=== PATIENT | male | born 1995 | race Caucasian/White ===

== ENCOUNTER 2017-03-01 08:45 | Emergency (ER) | payer BC ==
[~2017-03-01] VITALS: Ht 188 cm; Wt 94.0 kg
[2017-03-01 08:52] VITALS: TEMP 36.4; Ht 188 cm; Wt 94.0 kg
[2017-03-01] MEDS ORDERED: XYLOCAINE 1%/SOD BICARB 20 ML VIAL INFIL ONE (09:04)
--- NOTE | 2017-03-01 09:45 | DIAGNOSTIC IMAGING REPORT ---
LEFT FINGER(S) MIN 2 VIEWS ROUTINE CLINICAL HISTORY: left thumb laceration trauma COMPARISON: None. DISCUSSION: The bones and joint spaces appear intact. There is no evidence of fracture, dislocation or bony disease. Soft tissue edematous change IMPRESSION: Soft tissue edema. No acute bony abnormality. The above report was generated using voice recognition software. It may contain grammatical, syntax or spelling errors. Electronically signed by: Matt Saini M.D. 03/01/2017 9:43 AM Dictated Date/Time: 03/01/2017 9:43 AM
[2017-03-01 09:54] VITALS: BP 139/72; PULSE 75; O2SAT 99
--- NOTE | 2017-03-01 16:27 | EMERGENCY ROOM VISIT NOTE ---
ED Visit Note First contact with patient: 08:58 Chief complaint: Left thumb laceration HPI: This 21-year-old white male presents for evaluation of a laceration on the ulnar surface of his left thumb. The patient was taking out the garbage this morning and lifted the lid on the dumpster. It happened to be bolted to another lid, and slipped and fell, cutting the left thumb in the web space. Bleeding was controlled with pressure. He denies any numbness, tingling, or loss of motion. No other complaints. Tetanus is believed to be up-to-date. Pain is 2/10. No prior history of thumb injury. No other fingers are involved. Right-hand dominant. Supplemental sheet was reviewed. Previous surgeries: None Medical history: Benign Current Medications: None Allergies: NKDA Tetanus: Within 10 years Family History: Noncontributory Social History: Single. [employer] student. No tobacco use. REVIEW OF SYSTEM: HEENT: No dizziness, visual problems, hearing loss, or tinnitus. There is no difficulty swallowing and no oral lesions are present. PULMONARY: No cough, shortness of breath, sputum production or hemoptysis. CARDIOVASCULAR: No chest pain, palpitations, shortness of breath or peripheral edema. GASTROINTESTINAL: No diarrhea, constipation, nausea, vomiting, or abdominal pain. GENITOURINARY: No dysuria, frequency, urgency or nocturia. NEUROLOGIC: No weakness, muscle tenderness, epilepsy or history of neurological problems. MUSCULOSKELETAL: No history of joint tenderness/swelling. No history of arthritis or arthralgias. SKIN: No rashes or lesions. PSYCHIATRIC: No history of depression or mental illness. ENDOCRINE: No history of diabetes, thyroid disorders, or abnormal hair growth. Physical Exam: Vitals: Afebrile. Reviewed and filed in patient's chart General: Well-developed, well-nourished, young white male, in no acute distress. Obvious discomfort. He is sitting on the bed. Alert and oriented. Skin: Warm and dry with good turgor. No rashes. No ecchymosis or erythema. The patient is not diaphoretic. No abrasions. The patient has a 1.5 cm laceration present in the first webspace, at the base of the thumb. It is slightly curvilinear. bleeding is controlled. No foreign material is visible. Musculoskeletal: Patient has mild discomfort with palpation over the first MCP joint. No pain with palpation over the IP joint or distal phalanx. Full range of motion of the IP joint. Full range of motion of the MCP joint. Thumb circumduction and opposition are intact. No laxity with stressing of the collateral ligaments. No pain with palpation over the index through little fingers, second through fifth metacarpals, or carpal bones. Full wrist motion. Neurologic: Gross sensation is intact across the thumb and other digits by soft touch. Capillary refill is equal for each of the fingers. Data: Radiographic imaging obtained today of the left thumb was reviewed by me and read by radiology. No evidence for fracture or retained foreign body. Impression: Left thumb 1.5 cm laceration Procedure: Informed oral consent was obtained for repair. Left thumb was prepped with Betadine and draped with a sterile towel. Area was anesthetized using 5 mL 1% plain lidocaine in a field block. Thorough inspection was performed. No foreign material was found. No violation of the tendon or joint space. Wound was irrigated copiously using normal sterile saline under jet spray lavage. Wound was closed using 4-0 nylon. Excellent wound edge approximation was achieved. Hemostasis was achieved. Plan: Patient was educated regarding today's findings. Conservative care measures were discussed. Cleanse the wound daily with soap and water and reapply a small amount of bacitracin. Ice and elevate intermittently as needed for discomfort. Tylenol and ibuprofen every 6 hours as needed for pain. Wound care handout was provided. Sutures out in 12 days. He may shower. Avoid soaking or swimming for two weeks. Return to the ER for any acute changes or signs of infection. Problem List Medical Problems: (1) GI bleed Status: Resolved Current/Historical Medications No Active Prescriptions or Reported Meds Allergies Coded Allergies: No Known Allergies (Unverified , 03/01/17) Vital Signs Date Time Temp Pulse Resp B/P (MAP) Pulse Ox O2 Delivery O2 Flow Rate FiO2 03/01/17 09:54 75 18 139/72 99 03/01/17 08:52 36.4 59 18 135/89 96 Room Air Medications Administered Medications (Trade) Dose Ordered Sig/Edd Route Start Time Stop Time Status Last Admin Dose Admin Lidocaine HCl (Buffered Lidocaine 1% Inj) 20 ml STK-MED ONCE INFIL 03/01/17 09:04 03/01/17 09:05 DC 03/01/17 09:07 20 ML Departure Information Impression Primary Impression: Laceration of left thumb Dispostion Home / Self-Care Condition GOOD Prescriptions No Active Prescriptions or Reported Meds Forms WORK / SCHOOL INSTRUCTIONS, HOME CARE DOCUMENTATION FORM, Days to leave dressing on: 1 Clean wound with;: soap and water Number of times/day to clean wound: 2 TYLENOL USE, WOUND CARE INSTRUCTIONS, IMPORTANT VISIT INFORMATION Patient Instructions [facility] Additional Instructions Cleanse the wound daily with soap and water Avoid swimming or soaking for 2 weeks you may shower and wash your hands Tylenol and Motrin every 6 hours as needed for discomfort Sutures out in 12 days Return to the ED for any acute changes or signs of infection
== END 2017-03-01 09:55 | disposition home or self-care (01) ==
LOC: C.EDB 08:47
DX: S61.012A Laceration without foreign body of left thumb without damage to nail, initial encounter (principal); W01.0XXA Fall on same level from slipping, tripping and stumbling without subsequent striking against object, initial encounter; Y92.89 Other specified places as the place of occurrence of the external cause

== ENCOUNTER 2017-03-13 14:05 | Emergency (ER) | payer BC ==
[~2017-03-13] VITALS: Ht 188 cm; Wt 95.3 kg
[2017-03-13 14:15] VITALS: BP 129/90; PULSE 92; TEMP 36.9; O2SAT 98; Ht 188 cm; Wt 95.3 kg
--- NOTE | 2017-03-13 14:43 | EMERGENCY ROOM VISIT NOTE ---
ED Visit Note First contact with patient: 14:18 CHIEF COMPLAINT: Suture removal HISTORY OF PRESENT ILLNESS: This 21 year old male patient returns to the ED today for removal of sutures that were placed 12 days ago. There has been no swelling, redness, or drainage from the wound. The patient feels like the laceration is healing well. REVIEW OF SYSTEMS: A 6 system review of systems was completed with positives and pertinent negatives listed in the HPI. PMH: Unchanged from previous visit. ALLERGIES: NKDA PHYSICAL EXAM: Vital Signs: Reviewed Nurse's notes, vital signs stable. GENERAL : This is a 21 year old male, in no acute distress. SKIN: There is a sutured wound on the finger with no signs of infection. There is no erythema, swelling , or tenderness. EMERGENCY DEPARTMENT COURSE: 4 sutures were removed without any difficulty and there was no separation of the wound edges. The patient was discharged home in good condition. DIAGNOSIS: Healing laceration and suture removal DISCHARGE INSTRUCTIONS AND TREATMENT: Wash any remaining crusts off of the wound today and resume your normal activities. Problem List Medical Problems: (1) GI bleed Status: Resolved Current/Historical Medications No Active Prescriptions or Reported Meds Allergies Coded Allergies: No Known Allergies (Unverified , 03/13/17) Vital Signs Date Time Temp Pulse Resp B/P (MAP) Pulse Ox O2 Delivery O2 Flow Rate FiO2 03/13/17 14:15 36.9 92 15 129/90 98 Room Air Departure Information Impression Primary Impression: Encounter for removal of sutures Dispostion Home / Self-Care Condition GOOD Prescriptions No Active Prescriptions or Reported Meds Referrals No Doctor, Assigned (PCP) Patient Instructions [facility] Additional Instructions Wash any remaining crusts off of the wound today and resume your normal activities.
== END 2017-03-13 14:52 | disposition home or self-care (01) ==
LOC: C.EDB 14:08 → C.EDD 14:52
DX: S61.219D Laceration without foreign body of unspecified finger without damage to nail, subsequent encounter (principal); X58.XXXD Exposure to other specified factors, subsequent encounter

== ENCOUNTER 2019-07-31 09:34 | Inpatient (IN) ==
[2019-07-31 10:26] LABS: Basophils # (auto) 0.02 K/uL (0-0.2); Basophils % (auto) 0.2 %; Eosinophils # (auto) 0.05 K/uL (0-0.5); Eosinophils % (auto) 0.5 %; Hematocrit (blood only) 44.3 % (42-52); Hemoglobin 16.6 g/dL (14.0-18.0); Immature Granulocytes # (auto) 0.01 K/uL (0.00-0.02); Immature Granulocytes % (auto) 0.1 %; Lymphocytes # (auto) 1.39 K/uL (1.2-3.4); Mean Corpuscular Hemoglobin 32.2 pg (25-34); Mean Corpuscular Hgb Conc 37.5 g/dL (32-36); Mean Corpuscular Volume 85.9 fL (80-100); Mean Platelet Volume 9.3 fL (7.4-10.4); Monocytes # (auto) 0.64 K/uL (0.11-0.59); Neutrophils # (auto) 8.57 K/uL (1.4-6.5); Neutrophils % (auto) 80.2 %; Platelet Count 302 K/uL (130-400); RDW Coefficient of Variation 12.3 % (11.5-14.5); RDW Standard Deviation 38.2 fL (36.4-46.3); Red Blood Count 5.16 M/uL (4.7-6.1); White Blood Count 10.68 K/uL (4.8-10.8)
[2019-07-31 10:44] LABS: Albumin Level 4.6 gm/dl (3.4-5.0); BUN Creatinine Ratio 11.2 (10-20); Calcium 9.5 mg/dl (8.5-10.1); Creatinine Clr Calc Pharmacy 109.4 ml/min; Est GFR (African American) 96.5; Est GFR (Non-African American) 83.3; Potassium 3.7 mmol/L (3.5-5.1)
--- NOTE | 2019-07-31 10:44 | Emergency Department Note ---
Entered by Augustine Hinton acting as a scribe for History of Present Illness General Chief complaint: Mental Health Evaluation Stated complaint: TRIED TO COMMITT SUICICDE Time Seen by Provider: 07/31/19 09:45 Source: patient Limitations: no limitations History of Present Illness Onset (ago): day(s) (last night) Location: head Severity: similar to prior episodes Pain Consistency: + constant Quality: + constant Associated symptoms: + other (weight loss) The patient is a 23 year old male who presents to the Emergency Room for a [facility] health evaluation. The patient states he tried to overdose last night. He states he took about 15 Benadryl and drank alcohol last night. He states he was hoping he would not wake up. He states he woke up this morning 3 hours ago and felt the side effects of the Benadryl. He states he still feels the side effects of the Benadryl. He states he has been feeling more sad for the past 1.5 months. He states he tried to commit suicide twice before. He states each time he tried to commit suicide he took pills. He states he has never been hospitalized for his psychiatric issues before. He states he has been under a lot of stress with his friends and work. He states he has never tried to cut himself. He notes he lost 20 pounds in the past month. He states he thinks he should be admitted. He denies taking medications for depression, having heart, liver, kidney, and lung issues. He states he has a family history of hypertension. Home Medications Home Medications Medication Instructions Recorded Confirmed Type No Known Home Medications 07/31/19 07/31/19 History Allergies Allergy/AdvReac Type Severity Reaction Status Date / Time No Known Allergies Allergy Verified 07/31/19 10:43 Past Med/Surg History Medical History (Updated 07/31/19 @ 18:10 by Ari Frazier MD) Overdose Surgical History Hx of eye surgery Social History Preferred Language: Albanian Communication Ability: Effective Beliefs That Will Affect Care: None marital status: Single Current Living Situation: Family current occupational status: employed Feels Safe at Home: Yes Smoking Status: Never smoker Hx Alcohol Use: No Hx Substance Use: No caffeine: Yes Dental Care, Regularly: Yes Physical Activity Frequency: 5-6 Times per Week Seatbelt Use: always Sunscreen Use: Yes Review of Systems See HPI for pertinent positives & negatives. and A total of 10 systems reviewed and were otherwise negative Physical Exam Vital Signs Vital Signs - 24 hr 07/31/19 09:41 07/31/19 11:35 Temperature 36.4 C L Temperature Source Oral Pulse Rate 107 H Pulse Rate [Radial] 90 Pulse Rhythm [Radial] Regular Respiratory Rate 16 16 Respiratory Effort / Characteristics Non-Labored Spontaneous Non-Labored Respiratory Depth Normal Normal Respiratory Pattern Regular Blood Pressure 154/93 H Blood Pressure [Right Arm] 122/80 Blood Pressure Mean 113 Blood Pressure Mean [Right Arm] 94 Blood Pressure Position Sitting Pulse Oximetry 99 99 Oxygen Delivery Method Room Air Room Air Sepsis Recent Fever Within 48 Hours No Sepsis New/Unexplained Change in Mental Status No Sepsis Action Taken by Nursing No Action Required GENERAL: Patient is in no acute distress. HEENT: No acute trauma, normocephalic atraumatic, mucous membranes moist, no nasal congestion, no scleral icterus. NECK: No stridor, no adenopathy, no meningismus, trachea is midline. LUNGS: Clear to auscultation bilaterally, no wheeze, no rhonchi, breath sounds equal. HEART: Without murmurs gallops or rubs, regular rate and rhythm. ABDOMEN: Soft, nontender, bowel sounds positive, no hernias, no peritonitis. EXTREMITIES: No cyanosis or edema, full range of motion of all the joints without pain or difficulty, no signs for acute trauma. NEUROLOGIC: Oriented x 3, no acute motor or sensory deficits, no focal weakness. SKIN: No rash, no jaundice, no diaphoresis. PSYCH: Flat affect. Cooperative. Voluntary. Admits to taking around 15 Benadryl with alcohol. Course Course 0946: The patient was evaluated in room A8, and a complete history and physical examination were performed. 1136: Patient is medically clear. 1313: [address] [place] [address] requested an EKG. 1403: The patient has been accepted to [address] [place] [address]. He will be transferred to the [facility] facility. Medical Decision Making Differential Diagnosis Differential Diagnosis includes but is not limited to drug or alcohol abuse, suicidal ideations, situational depression, electrolyte imbalance, thyroid disorder, and anemia. Medical Records Attestation: I reviewed the patient's medical records. Patient was seen in the ED on July 18 for chest pain. He had a negative cardiac and pulmonary work-up. Home Medications Current Medication List: was personally reviewed by me Laboratory Data Attestation: I reviewed the patient's lab results. Result diagrams: 07/31/19 10:12 07/31/19 10:12 Lab Results 07/31/19 07/31/19 07/31/19 Range/Units 10:12 10:12 10:12 WBC 10.68 (4.8-10.8) K/uL RBC 5.16 (4.7-6.1) M/uL Hgb 16.6 (14.0-18.0) g/dL Hct 44.3 (42-52) % MCV 85.9 (80-100) fL MCH 32.2 (25-34) pg MCHC 37.5 H (32-36) g/dL RDW Std Deviation 38.2 (36.4-46.3) fL RDW Coeff of Shubham 12.3 (11.5-14.5) % Plt Count 302 (130-400) K/uL MPV 9.3 (7.4-10.4) fL Immature Gran % (Auto) 0.1 % Neut % (Auto) 80.2 % Lymph % (Auto) 13.0 % Carver % (Auto) 6.0 % Eos % (Auto) 0.5 % Baso % (Auto) 0.2 % Immature Gran # (Auto) 0.01 (0.00-0.02) K/uL Neut # (Auto) 8.57 H (1.4-6.5) K/uL Lymph # (Auto) 1.39 (1.2-3.4) K/uL Carver # (Auto) 0.64 H (0.11-0.59) K/uL Eos # (Auto) 0.05 (0-0.5) K/uL Baso # (Auto) 0.02 (0-0.2) K/uL Sodium 138 (136-145) mmol/L Potassium 3.7 (3.5-5.1) mmol/L Chloride 105 (98-107) mmol/L Carbon Dioxide 29 (21-32) mmol/L Anion Gap 4.0 (3-11) BUN 14 (7-18) mg/dl Creatinine 1.21 (0.6-1.4) mg/dl Est Cr Clr Drug Dosing 109.4 ml/min Est GFR ( Amer) 96.5 Est GFR (Non-Af Amer) 83.3 BUN/Creatinine Ratio 11.2 (10-20) Glucose 116 H (70-99) mg/dl Calcium 9.5 (8.5-10.1) mg/dl Total Bilirubin 1.3 H (0.2-1) mg/dl AST 16 (15-37) U/L ALT 21 (12-78) U/L Alkaline Phosphatase 62 (45-117) U/L Total Protein 8.1 (6.4-8.2) gm/dl Albumin 4.6 (3.4-5.0) gm/dl Globulin 3.5 (2.5-4.0) gm/dl Albumin/Globulin Ratio 1.3 (0.9-2) TSH 1.270 (0.300-4.500) uIu/ml Urine Color Urine Appearance (Clear) Urine pH (4.5-7.5) Ur Specific [place] (1.000-1.030) Urine Protein (Negative) Urine Glucose (UA) (Negative) Urine Ketones (Negative) Urine Blood (Negative) Urine Nitrite (Negative) Urine Bilirubin (Negative) Urine Urobilinogen (Negative) Ur Leukocyte Esterase (Negative) Salicylates < 1.7 L (2.8-20) mg/dl Urine Opiates Screen (Neg) Ur Methadone, Qual (Neg) Acetaminophen < 2 L (10-30) ug/ml Urine Barbiturates (Neg) Ur Phencyclidine (PCP) (Neg) U Amphetamin/Meth Scrn (Neg) MDMA (Ecstasy) Screen (Neg) U Benzodiazepines Scrn (Neg) Ur Cocaine Metabolite (Neg) U Marijuana (THC) Screen (Neg) Ethyl Alcohol mg/dL (0-3) mg/dl 07/31/19 07/31/19 07/31/19 Range/Units 10:12 10:53 10:53 WBC (4.8-10.8) K/uL RBC (4.7-6.1) M/uL Hgb (14.0-18.0) g/dL Hct (42-52) % MCV (80-100) fL MCH (25-34) pg MCHC (32-36) g/dL RDW Std Deviation (36.4-46.3) fL RDW Coeff of Shubham (11.5-14.5) % Plt Count (130-400) K/uL MPV (7.4-10.4) fL Immature Gran % (Auto) % Neut % (Auto) % Lymph % (Auto) % Carver % (Auto) % Eos % (Auto) % Baso % (Auto) % Immature Gran # (Auto) (0.00-0.02) K/uL Neut # (Auto) (1.4-6.5) K/uL Lymph # (Auto) (1.2-3.4) K/uL Carver # (Auto) (0.11-0.59) K/uL Eos # (Auto) (0-0.5) K/uL Baso # (Auto) (0-0.2) K/uL Sodium (136-145) mmol/L Potassium (3.5-5.1) mmol/L Chloride (98-107) mmol/L Carbon Dioxide (21-32) mmol/L Anion Gap (3-11) BUN (7-18) mg/dl Creatinine (0.6-1.4) mg/dl Est Cr Clr Drug Dosing ml/min Est GFR ( Amer) Est GFR (Non-Af Amer) BUN/Creatinine Ratio (10-20) Glucose (70-99) mg/dl Calcium (8.5-10.1) mg/dl Total Bilirubin (0.2-1) mg/dl AST (15-37) U/L ALT (12-78) U/L Alkaline Phosphatase (45-117) U/L Total Protein (6.4-8.2) gm/dl Albumin (3.4-5.0) gm/dl Globulin (2.5-4.0) gm/dl Albumin/Globulin Ratio (0.9-2) TSH (0.300-4.500) uIu/ml Urine Color Yellow Urine Appearance Clear (Clear) Urine pH 6.0 (4.5-7.5) Ur Specific [place] 1.009 (1.000-1.030) Urine Protein Negative (Negative) Urine Glucose (UA) Negative (Negative) Urine Ketones Negative (Negative) Urine Blood Negative (Negative) Urine Nitrite Negative (Negative) Urine Bilirubin Negative (Negative) Urine Urobilinogen Negative (Negative) Ur Leukocyte Esterase Negative (Negative) Salicylates (2.8-20) mg/dl Urine Opiates Screen Neg (Neg) Ur Methadone, Qual Neg (Neg) Acetaminophen (10-30) ug/ml Urine Barbiturates Neg (Neg) Ur Phencyclidine (PCP) Neg (Neg) U Amphetamin/Meth Scrn Neg (Neg) MDMA (Ecstasy) Screen Neg (Neg) U Benzodiazepines Scrn Neg (Neg) Ur Cocaine Metabolite Neg (Neg) U Marijuana (THC) Screen Neg (Neg) Ethyl Alcohol mg/dL < 3.0 (0-3) mg/dl ECG Data Attestation: I personally reviewed and interpreted this ECG as follows: Indication: + toxicologic Rate (beats per minute): 90 Rhythm: + normal sinus ECG Intervals/blocks: + Normal QT-c (at 425) ECG ST segments: no ST elevation ECG Findings: no PVCs Blood Pressure Blood Pressure Findings: Elevated blood pressure Blood Pressure Disposition: further management by hospitalist MDM Narrative There is no leukocytosis or concerning anemia. No significant electrolyte abnormality or kidney failure. No worrisome liver enzyme elevation. The patient appears to be in a euthyroid state. Urinalysis does not show infection. Alcohol, Tylenol and aspirin levels were undetectable. Urine tox was negative. EKG showed a sinus rhythm, no significant QT prolongation. Patient presents with suicidal ideation. He attempted to overdose on Benadryl with alcohol last evening. He is voluntary and would like to stay in the hospital for help. The patient was felt medically clear. He was seen by psychiatry case management. The patient has been accepted at this [facility] facility, [address] He is being admitted voluntarily. Continuous Cardiac Monitoring: An order was placed for continuous cardiac monitoring. The monitor shows a rate of 93 with a normal sinus rhythm. Impression & Plan Suicide attempt, Medication overdose, Depression Discharge Plan Visit Data *Final* Discharge Date/Time: 07/31/19 14:30 Chief Complaint: Mental Health Evaluation Stated Complaint: TRIED TO COMMITT SUICICDE ED Provider: Ari Frazier Discharge Problem: Suicide attempt, Medication overdose, Depression Patient Disposition: Transfer Behavioral Health Fac Discharge Instructions Interventions: ED Discharge Assessment Last Done: 07/31/19 14:30 Discharge Problem: Medication overdose Qualifiers: Encounter type: initial encounter Injury intent: intentional self-harm Qualified Code(s): T50.902A - Poisoning by unspecified drugs, medicaments and biological substances, intentional self-harm, initial encounter Depression Qualifiers: Depression Type: unspecified Qualified Code(s): F32.9 - Major depressive disorder, single episode, unspecified The scribe's documentation has been prepared under my direction and personally reviewed by me in its entirety. I confirm that the note above accurately reflects all work, treatment, procedures, and medical decision making performed by me.
[2019-07-31 10:46] LABS: Acetaminophen < 2 ug/ml (10-30); Salicylate < 1.7 mg/dl (2.8-20)
[2019-07-31 10:54] LABS: Albumin Globulin Ratio 1.3 (0.9-2); Bilirubin,Total 1.3 mg/dl (0.2-1); Globulin 3.5 gm/dl (2.5-4.0); Thyroid Stimulating Hormone 1.27 uIu/ml (0.300-4.500); Total Protein 8.1 gm/dl (6.4-8.2)
[2019-07-31 11:06] LABS: Appearance Urine Clear (Clear); Bilirubin Urine Negative (Negative); Blood Urine Negative (Negative); Color Urine Yellow; Glucose Urine UA Negative (Negative); Ketones Urine Negative (Negative); Leukocyte Esterase Urine Negative (Negative); Nitrite Urine Negative (Negative); Protein Urine Negative (Negative); Specific Gravity Urine 1.009 (1.000-1.030); Urobilinogen Urine Negative (Negative)
[2019-07-31 11:32] LABS: Amphetamines+Metham, Urine Neg (Neg); Barbiturates, Urine Neg (Neg); Benzodiazepine, Urine Neg (Neg); Cocaine, Urine Neg (Neg); MDMA (Ecstacy), Urine Neg (Neg); Methadone, Urine Neg (Neg); Opiate, Urine Neg (Neg); Phencyclidine, Urine Neg (Neg)
[2019-07-31] MEDS ORDERED: SODIUM CHLORIDE 0.65% NA SOLN 45 ML (OCEAN) PRN (14:44)
[2019-07-31] MEDS ORDERED: BISMUTH SUBSALICYLATE PER ML OMNICELL CHARGE PO PRN (14:44)
[2019-07-31] MEDS ORDERED: ACETAMINOPHEN 325 MG TAB PO PRN (14:44)
[2019-07-31] MEDS ORDERED: ALUMINUM/MAGNESIUM SUSP 30 ML UDC PO PRN (14:44)
[2019-07-31] MEDS ORDERED: MAGNESIUM HYDROXIDE SUSP 30 ML UDC PO PRN (14:44)
--- NOTE | 2019-07-31 15:59 | Electrocardiogram Report ---
Test Reason : Blood Pressure : / mmHG Vent. Rate : 090 BPM Atrial Rate : 090 BPM P-R Int : 128 ms QRS Dur : 100 ms QT Int : 348 ms P-R-T Axes : 049 040 006 degrees QTc Int : 425 ms Normal sinus rhythm Normal ECG When compared with ECG of 18-JUL-2019 18:48, No significant change Confirmed by Jayce Garcia ([id number]) on 07/31/2019 3:58:27 PM Referred By: REFERRED SELF Confirmed By:Jayce Garcia
[2019-07-31] MEDS ORDERED: LORazepam 0.5 MG TAB PO PRN (16:37)
--- NOTE | 2019-07-31 16:37 | History & Physical ---
Date of Service July 31, 2019 Impression / Recommendations Impression 23-year-old gentleman with minimal prior psychiatric history apart from treatment for ADHD in high school. Presents with symptoms of likely underlying generalized anxiety disorder and has a history of multiple overdose attempts in the past triggered by psychosocial stressors. We will need to explore underlying personality structure as possible contributor to suicidal risk. (1) Suicide attempt: 07/31 -Patient admitted on a voluntary status to the behavioral health unit. Will be maintained on safety checks and encouraged to participate in unit programming as appropriate -Patient has a history of 3 total impulsive suicide attempts via overdose and at risk for recurrence of self-harm if discharged without appropriate treatment -He does not appear to be demonstrating symptoms of anticholinergic toxidrome apart from complaint of dry mouth and drowsiness. He was encouraged to push oral fluids today and will defer any anticholinergic medications presently (2) Depression: 07/31 -Unclear if mood decompensation is truly recurrent major depressive disorder or perhaps more an adjustment disorder with depression in setting of recent psychosocial stressors. Regardless, anxiety appears to play heavily and undermining his ability to cope effectively -Patient agreeable to SSRI trial as below -advised to minimize etoh intake which may negatively impact mood and impulse control - he will require outpatient f/u which will be addressed prior to discharge Depression Type: unspecified Qualified Code(s): F32.9 - Major depressive disorder, single episode, unspecified (3) Generalized anxiety disorder: 07/31 -Likely CAMI underlying. Psychoeducation provided. Risks and benefits of SSRIs reviewed in detail. Patient amenable to trial and will start Lexapro 10 mg p.o. every morning beginning tomorrow -He was advised not to continue the practice of taking Benadryl at home for sleep latency associated with anxiety. If he requires a sleep aid here in the hospital he will be given an alternative that has not directly antihistaminic/anticholinergic and will write for an Ativan 0.5 mg twice daily as needed for acute anxiety or insomnia temporarily Inventory Assets Strengths: Patient is presently help seeking, motivated Needs: Provision of safety, medication management Risk Factors Assessment Male: Yes : Yes Do You Have Access To A Gun?: No Health Problems: No Substance Use Disorders: No Previous Attempt: Yes Previous Attempt; Didn't Tell Anyone: Yes Family History of Suicide: No Previous Psychiatric Hospitalization: No Hopelessness: No Smoker: No Protective Factors Assessment Presybeterian Beliefs: No : No Responsible for Young Children: No 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) Psychiatric History Identifying Data JAMIE TORRE is a 23-year-old M who currently lives with his parents, has a history of ADHD as child, and was admitted on 07/31/19 14:02 on a 201 voluntary commitment for suicide attempt via OD. Chief Complaint "I get overwhelmed". History of Present Illness Patient reports a history of psychiatric follow-up with Dr. Rei green en the ages of 13 and 17 when he was being treated for ADHD with Concerta but has been off of that medication for several years now and reports repeat testing in college did not support the ADHD diagnosis. He otherwise denies a formal psychiatric history. He does note a history of 2 prior overdose attempts previous to his overdose last evening. First overdose attempt occurred during his freshman year when he took a half bottle of ibuprofen impulsively when he felt alone "like everyone abandoned me." Second overdose attempt occurred during his sophomore year of college and also took an overdose of [id number] pain reliever but unable to recall trigger. He did not seek treatment for these events. Overdose last night with 15 to 20 tablets of Benadryl (unknown strength, likely 25 mg) around 9:30 PM in combination with 3-5 alcoholic beverages. Did not seek help. Woke this morning feeling groggy and with dry mouth but denies other symptoms of anticholinergic toxidrome. States h e took the Benadryl last night either to kill himself or put himself into a coma however now feels glad that he was not successful and appreciative of opportunity to get some help. He reports that his mood at baseline is typically fairly good and he tends to perceive himself as happy but when circumstances get difficult he can feel quite depressed and it can be difficult for him to cope and he notices intrusion of suicidal impulses. Recently he reports mood has decompensated following a break-up after 5-month relationship with a female who had a 3-year-old son with whom he quickly felt himself quite attached to. They broke up last Friday and he worries that they will not be able to remain friends. 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 He reports depressed mood and increased anxiety for the past month with diminished appetite, perhaps 20 pound weight loss, variable sleep latency, variable energy. He describes a tendency to worry associated with significant physical tension, distractibility, sleep latency, and a tendency to overreact and desire to "fix" things. "I can be pretty overbearing." He reports a history of 1 or 2 panic attacks in his lifetime but none recent. He denies a history of social phobia, OCD, tobin, PTSD, or psychosis. He denies any other history of self injury apart from his overdose attempts. Past Psychiatric History Previous Psych History: Former outpatient of Dr. Rei Kumar in high school for ADHD treated with Concerta. Current Psychiatric Diagnosis: ADHD, reportedly diagnosis later not supported with repeat testing Outpatient Services: None Previous Psych Admissions: None Do You Have Access To A Gun?: No History of Previous Suicide Attempt: Yes Describe Attempts in the Past: Overdose 2x a few years ago Past Medication Trials: Concerta -none since college Past Head Trauma/Neuro History History of Concussion/Seizure: No Allergies Allergy/AdvReac Type Severity Reaction Status Date / Time No Known Allergies Allergy Verified 07/31/19 10:43 Home Medications Home Medications Medication Instructions Recorded Confirmed Type No Known Home Medications 07/31/19 07/31/19 History Family History Family History of: Psychosis/ThoughtDisorder Family Mental Health History Comment: Great Aunt-Schizophrenia Alcohol History Hx of Alcohol Use Over the Past 12 Months: Yes (Occasional. Reports typically only 1 drink on occasion at baseline. In the past 1 to 2 weeks he has been drinking 1-2 drinks nightly. 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 Number Of Children: 0 Beliefs That Will Affect Care: None Current Legal Problems: No Hx Legal Problems: No Hx Traumatic Life Events: No Psychological Trauma History Comment: Denies Patient History Surgical History Hx of eye surgery Social History Preferred Language: Lao Communication Ability: Effective Beliefs That Will Affect Care: None marital status: Single Current Living Situation: Family current occupational status: employed Feels Safe at Home: Yes Smoking Status: Never smoker Hx Alcohol Use: No Hx Substance Use: No caffeine: Yes Dental Care, Regularly: Yes Physical Activity Frequency: 5-6 Times per Week Seatbelt Use: always Sunscreen Use: Yes Review of Systems Constitutional: as per Subjective / HPI Respiratory: no problem reported Cardiovascular: no problem reported Gastrointestinal: no problem reported Neurologic: no dizziness and no confusion Psychiatric: as per Subjective / HPI 10 point review of systems otherwise negative except as per HPI Physical Exam Psychiatric: Orientation: alert, oriented x 3 and cooperative Apperance: appropriately dressed and appropriately groomed Eye Contact: + fair eye contact Motor Behavior: steady gait and station; n tremor Speech: normal rate/rhythm/volume of speech Affect: + anxious affect Mood: + depressed mood and + anxious mood Thought Process: linear/logical thought process and clear/coherent thought process Thought Content: reality based without delusions Suicidal Thoughts: denies suicidal intent; + reports suicidal thoughts Homicidal Thoughts: denies homicidal thoughts Hallucinations: no auditory hallucinations, no visual hallucinations and no tactile hallucinations Cognition: recent memory grossly intact and remote memory grossly intact Estimated Intelligence: average estimated intelligence Insight: + fair insight Judgement: + limited judgement Vital Signs (Past 24 Hours): Last Vital Signs Temp 36.4 C L 07/31/19 09:41 Pulse 95 H 07/31/19 14:30 Resp 16 07/31/19 14:30 BP 131/85 07/31/19 14:30 Pulse Ox 99 07/31/19 14:30 Results & Data Laboratory Results Laboratory Results - last 24 hr 07/31/19 07/31/19 07/31/19 10:12 10:12 10:12 WBC 10.68 RBC 5.16 Hgb 16.6 Hct 44.3 MCV 85.9 MCH 32.2 MCHC 37.5 H RDW Std Deviation 38.2 RDW Coeff of Shubham 12.3 Plt Count 302 MPV 9.3 Immature Gran % (Auto) 0.1 Neut % (Auto) 80.2 Lymph % (Auto) 13.0 [place] % (Auto) 6.0 Eos % (Auto) 0.5 Baso % (Auto) 0.2 Immature Gran # (Auto) 0.01 Neut # (Auto) 8.57 H Lymph # (Auto) 1.39 [place] # (Auto) 0.64 H Eos # (Auto) 0.05 Baso # (Auto) 0.02 Sodium 138 Potassium 3.7 Chloride 105 Carbon Dioxide 29 Anion Gap 4.0 BUN 14 Creatinine 1.21 Est Cr Clr Drug Dosing 109.4 Est GFR ( Amer) 96.5 Est GFR (Non-Af Amer) 83.3 BUN/Creatinine Ratio 11.2 Glucose 116 H Calcium 9.5 Total Bilirubin 1.3 H AST 16 ALT 21 Alkaline Phosphatase 62 Total Protein 8.1 Albumin 4.6 Globulin 3.5 Albumin/Globulin Ratio 1.3 TSH 1.270 Urine Color Urine Appearance Urine pH Ur Specific [place] Urine Protein Urine Glucose (UA) Urine Ketones Urine Blood Urine Nitrite Urine Bilirubin Urine Urobilinogen Ur Leukocyte Esterase Salicylates < 1.7 L Urine Opiates Screen Ur Methadone, Qual Acetaminophen < 2 L Urine Barbiturates Ur Phencyclidine (PCP) U Amphetamin/Meth Scrn MDMA (Ecstasy) Screen U Benzodiazepines Scrn Ur Cocaine Metabolite U Marijuana (THC) Screen Ethyl Alcohol mg/dL 07/31/19 07/31/19 07/31/19 10:12 10:53 10:53 WBC RBC Hgb Hct MCV MCH MCHC RDW Std Deviation RDW Coeff of [place]ubham Plt Count MPV Immature Gran % (Auto) Neut % (Auto) Lymph % (Auto) [place] % (Auto) Eos % (Auto) Baso % (Auto) Immature Gran # (Auto) Neut # (Auto) Lymph # (Auto) [place] # (Auto) Eos # (Auto) Baso # (Auto) Sodium Potassium Chloride Carbon Dioxide Anion Gap BUN Creatinine Est Cr Clr Drug Dosing Est GFR ( Amer) Est GFR (Non-Af Amer) BUN/Creatinine Ratio Glucose Calcium Total Bilirubin AST ALT Alkaline Phosphatase Total Protein Albumin Globulin Albumin/Globulin Ratio TSH Urine Color Yellow Urine Appearance Clear Urine pH 6.0 Ur Specific [place] 1.009 Urine Protein Negative Urine Glucose (UA) Negative Urine Ketones Negative Urine Blood Negative Urine Nitrite Negative Urine Bilirubin Negative Urine Urobilinogen Negative Ur Leukocyte Esterase Negative Salicylates Urine Opiates Screen Neg Ur Methadone, Qual Neg Acetaminophen Urine Barbiturates Neg Ur Phencyclidine (PCP) Neg U Amphetamin/Meth Scrn Neg MDMA (Ecstasy) Screen Neg U Benzodiazepines Scrn Neg Ur Cocaine Metabolite Neg U Marijuana (THC) Screen Neg Ethyl Alcohol mg/dL < 3.0 Current Inpatient Medications Current Inpatient Medications: Current Inpatient Medications Acetaminophen (Tylenol) 650 mg PO Q4H PRN PRN Reason: Headache or Minor Fever Stop: 08/30/19 14:43 Al Hydrox/Mg Hydrox/Simethicone (Maalox) 30 ml PO Q4H PRN PRN Reason: GI Upset Stop: 08/30/19 14:43 Bismuth Subsalicylate (Kaopectate) 15 ml PO PRN PRN PRN Reason: Loose Stool Stop: 08/30/19 14:43 Magnesium Hydroxide (Milk Of Magnesia) 30 ml PO DAILY PRN PRN Reason: Constipation Stop: 08/30/19 14:43 Sodium Chloride ([place] Nasal) 1 - 2 sprays NA PRN PRN PRN Reason: Nasal Dryness/Congestion Stop: 08/30/19 14:43
[2019-08-01] MEDS ORDERED: ESCITALOPRAM OXALATE 10 MG TAB PO SCH (09:00)
--- NOTE | 2019-08-01 11:35 | Psychiatric Progress Note ---
Date of Service August 01, 2019 Impression / Recommendations Impression 23-year-old gentleman with minimal prior psychiatric history apart from treatment for ADHD in high school. Presents with symptoms of likely underlying generalized anxiety disorder and has a history of multiple overdose attempts in the past triggered by psychosocial stressors. We will need to explore underlying personality structure as possible contributor to suicidal risk. (1) Suicide attempt: 07/31 -Patient admitted on a voluntary status to the behavioral health unit. Will be maintained on safety checks and encouraged to participate in unit programming as appropriate -Patient has a history of 3 total impulsive suicide attempts via overdose and at risk for recurrence of self-harm if discharged without appropriate treatment -He does not appear to be demonstrating symptoms of anticholinergic toxidrome apart from complaint of dry mouth and drowsiness. He was encouraged to push oral fluids today and will defer any anticholinergic medications presently 08/01 -Reports no further suicidal impulses in last 24 hours. -Patient does have a history of multiple impulsive suicide attempts and remains at risk for recurrence of self injury if discharged prematurely (2) Depression: 07/31 -Unclear if mood decompensation is truly recurrent major depressive disorder or perhaps more an adjustment disorder with depression in setting of recent psychosocial stressors. Regardless, anxiety appears to play heavily and undermining his ability to cope effectively -Patient agreeable to SSRI trial as below -advised to minimize etoh intake which may negatively impact mood and impulse control - he will require outpatient f/u which will be addressed prior to discharge 08/01 -Continue Lexapro 10 mg daily (3) Generalized anxiety disorder: 07/31 -Likely CAMI underlying. Psychoeducation provided. Risks and benefits of SSRIs reviewed in detail. Patient amenable to trial and will start Lexapro 10 mg p.o. every morning beginning tomorrow -He was advised not to continue the practice of taking Benadryl at home for sleep latency associated with anxiety. If he requires a sleep aid here in the hospital he will be given an alternative that has not directly antihistaminic/anticholinergic and will write for an Ativan 0.5 mg twice daily as needed for acute anxiety or insomnia temporarily 08/01 -Reports some interval improvement in anxiety today with support and an opportunity to have some distance from acute psychosocial stressors outside of the hospital. 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 Review of Systems Sleep Information Total Hours of Sleep: 6.75 Meal Information Percent Meal Consumed - Breakfast: 100 Percent Meal Consumed - Dinner: 100 Subjective Subjective Patient was seen & assessed and interval progress reviewed with treatment team. Patient did not go to group last evening due to fatigue however he is up, alert, and participating this morning. On interview he denies residual grogginess associated with Benadryl overdose. He did not have a bowel movement yesterday but does not feel constipated so far. Starting Lexapro today and first dose without initial problems. He is already describing some improved hopefulness taking comfort and the fact that he has chosen to seek help. Physical Exam Psychiatric Orientation: alert, oriented x 3 and cooperative Apperance: appropriately dressed and appropriately groomed Eye Contact: good eye contact Motor Behavior: steady gait and station and no abnormal motor movements Speech: normal rate/rhythm/volume of speech Affect: euthymic affect " Pretty good" Thought Process: linear/logical thought process Thought Content: reality based without delusions Suicidal Thoughts: denies suicidal intent; + reports suicidal thoughts Homicidal Thoughts: denies homicidal thoughts Hallucinations: no auditory hallucinations, no visual hallucinations and no tactile hallucinations Cognition: recent memory grossly intact, remote memory grossly intact and attention grossly intact Estimated Intelligence: average estimated intelligence Insight: + fair insight Judgement: + fair judgement Vital Signs (Past 24 Hours) Last Vital Signs Temp 36.9 C 08/01/19 06:51 Pulse 92 H 08/01/19 06:52 Resp 16 08/01/19 06:51 BP 102/90 08/01/19 06:52 Pulse Ox 99 07/31/19 15:48 Results & Data Laboratory Results Laboratory Results - last 24 hr 07/31/19 10:53 Urine Opiates Screen Neg Ur Methadone, Qual Neg Urine Barbiturates Neg Ur Phencyclidine (PCP) Neg U Amphetamin/Meth Scrn Neg MDMA (Ecstasy) Screen Neg U Benzodiazepines Scrn Neg Ur Cocaine Metabolite Neg U Marijuana (THC) Screen Neg Current Inpatient Medications Current Inpatient Medications: Current Inpatient Medications Acetaminophen (Tylenol) 650 mg PO Q4H PRN PRN Reason: Headache or Minor Fever Stop: 08/30/19 14:43 Al Hydrox/Mg Hydrox/Simethicone (Maalox) 30 ml PO Q4H PRN PRN Reason: GI Upset Stop: 08/30/19 14:43 Bismuth Subsalicylate (Kaopectate) 15 ml PO PRN PRN PRN Reason: Loose Stool Stop: 08/30/19 14:43 Escitalopram Oxalate (Lexapro Tab) 10 mg PO QAM HEIDI Stop: 08/31/19 08:59 Last Admin: 08/01/19 08:12 Dose: 10 mg Documented by: Lorazepam (Ativan) 0.5 mg PO BID PRN PRN Reason: Anxiety/Insomnia Stop: 08/30/19 16:36 Magnesium Hydroxide (Milk Of Magnesia) 30 ml PO DAILY PRN PRN Reason: Constipation Stop: 08/30/19 14:43 Sodium Chloride ([place] Nasal) 1 - 2 sprays NA PRN PRN PRN Reason: Nasal Dryness/Congestion Stop: 08/30/19 14:43 Post Discharge Appointments Primary Care Physician Name Of Family Doctor: Dr. [facility] Contact Information Discharge Discharge [address]: [address] [place] [address] (1) Depression Depression Type: unspecified Qualified Code(s): F32.9 - Major depressive disorder, single episode, unspecified
[2019-08-01] MEDS: ONDANSETRON 8MG OD TAB PO PRN (18:48)
[2019-08-02] MEDS: ONDANSETRON 8MG OD TAB PO PRN (08:49)
[2019-08-02] MEDS ORDERED: ESCITALOPRAM OXALATE ORAL SOLN 5 MG/5 ML PO SCH (09:00)
--- NOTE | 2019-08-02 13:07 | Psychiatric Progress Note ---
Date of Service August 02, 2019 Impression / Recommendations Impression 23-year-old gentleman with minimal prior psychiatric history apart from treatment for ADHD in high school. Presents with symptoms of likely underlying generalized anxiety disorder and has a history of multiple overdose attempts in the past triggered by psychosocial stressors. We will need to explore underlying personality structure as possible contributor to suicidal risk. (1) Suicide attempt: 07/31 -Patient admitted on a voluntary status to the behavioral health unit. Will be maintained on safety checks and encouraged to participate in unit programming as appropriate -Patient has a history of 3 total impulsive suicide attempts via overdose and at risk for recurrence of self-harm if discharged without appropriate treatment -He does not appear to be demonstrating symptoms of anticholinergic toxidrome apart from complaint of dry mouth and drowsiness. He was encouraged to push oral fluids today and will defer any anticholinergic medications presently 08/01 -Reports no further suicidal impulses in last 24 hours. -Patient does have a history of multiple impulsive suicide attempts and remains at risk for recurrence of self injury if discharged prematurely 08/02 - Pt continues to deny SI at this time - Continue to encourage participation in group and recreational programming (2) Depression: 07/31 -Unclear if mood decompensation is truly recurrent major depressive disorder or perhaps more an adjustment disorder with depression in setting of recent psychosocial stressors. Regardless, anxiety appears to play heavily and undermining his ability to cope effectively -Patient agreeable to SSRI trial as below -advised to minimize etoh intake which may negatively impact mood and impulse control - he will require outpatient f/u which will be addressed prior to discharge 08/01 -Continue Lexapro 10 mg daily 08/02 - Dose of Lexapro reduced to 2.5mg for this morning, as patient was reporting diarrhea with episodes of emesis - It is now felt that these GI symptoms are better explained by a viral infection, and patient is agreeable with continuing titration of Lexapro. Will increase to 5mg tomorrow morning, and likely back to 10mg by time of discharge - Pt remains agreeable for outpatient therapy and psychiatric medication management - referrals pending (3) Generalized anxiety disorder: 07/31 -Likely CAMI underlying. Psychoeducation provided. Risks and benefits of SSRIs reviewed in detail. Patient amenable to trial and will start Lexapro 10 mg p.o. every morning beginning tomorrow -He was advised not to continue the practice of taking Benadryl at home for sleep latency associated with anxiety. If he requires a sleep aid here in the hospital he will be given an alternative that has not directly antihistaminic/anticholinergic and will write for an Ativan 0.5 mg twice daily as needed for acute anxiety or insomnia temporarily 08/01 -Reports some interval improvement in anxiety today with support and an opportunity to have some distance from acute psychosocial stressors outside of the hospital. He was encouraged to participate actively in group and individual therapeutic activities today 08/02 - Continue as above; patient reporting ongoing improvement in anxiety Inventory Assets Strengths: Patient is presently help seeking, motivated Needs: Provision of safety, medication management Risk Factors Assessment Male: Yes : Yes Do You Have Access To A Gun?: No Health Problems: No Substance Use Disorders: No Previous Attempt: Yes Previous Attempt; Didn't Tell Anyone: Yes Family History of Suicide: No Previous Psychiatric Hospitalization: No Hopelessness: No Smoker: No Protective Factors Assessment Advent Beliefs: No : No Responsible for Young Children: No 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 Chief Complaint "I feel alright today. This GI thing definitely has not been helping." Review of Systems Notes Constitutional: denied Cardiovascular: denied Respiratory: denied Gastrointestinal: reports ongoing episodes of diarrhea, intermittent nausea. Denies episodes of vomiting since yesterday. Neurological: denied Psychiatric: denies symptoms other than stated above Total of at least 10 systems reviewed, pertinent positives as above and in HPI. Sleep Information Total Hours of Sleep: 6.75 Sleep Comments: pt on q-15 minute checks Meal Information Percent Meal Consumed - Breakfast: 10 Percent Meal Consumed - Lunch: 100 Percent Meal Consumed - Dinner: 10 Nutrition Comment: pt. has poor appetite r/t GI upset Subjective Subjective Patient was seen & assessed and interval progress reviewed with treatment team. Staff report the patient completed a family meeting with parents yesterday, who remain supportive. Pt has been processing work stress and a break-up during group programming. Pt was seen today to assess progress since admission. Pt states he is feeling "alright." He does admit to feeling a bit better physically, reporting vomiting and diarrhea last evening. Pt states that the diarrhea is ongoing, but denies emesis since yesterday. Pt does not believe his physical symptoms are related to the initiation of Lexapro, and is therefore interested in titrating the medication back to its initial dose. Reviewed risks, benefits, and potential side effects. Pt was agreeable with 5mg tomorrow morning, and then resuming 10mg the morning after. He remains hopeful for medication management and therapy on an outpatient basis. He denies SI since admission, and admits he is continuing to process various stressors during group programming. He denies specific needs or concerns at this time. Physical Exam Psychiatric Orientation: alert, oriented x 3 and cooperative (and pleasant ) Apperance: appropriately dressed, appropriately groomed and appeared stated age Eye Contact: good eye contact Motor Behavior: steady gait and station and no abnormal motor movements Speech: normal rate/rhythm/volume of speech Affect: euthymic affect and mood congruent with affect Mood: no depressed mood ("I'm feeling alright") Thought Process: goal directed thought process, clear/coherent thought process and thought association intact Thought Content: reality based without delusions; no hopelessness and no worthlessness Suicidal Thoughts: denies suicidal thoughts and denies suicidal intent Homicidal Thoughts: denies homicidal thoughts Hallucinations: no auditory hallucinations and no visual hallucinations Cognition: attention grossly intact and language grossly intact Insight: + fair insight Judgement: + fair judgement Vital Signs (Past 24 Hours) Last Vital Signs Temp 37.5 C 08/02/19 06:45 Pulse 80 08/02/19 06:46 Resp 18 08/02/19 06:45 BP 115/72 08/02/19 06:46 Pulse Ox 99 07/31/19 15:48 Results & Data ([facility]) Current Inpatient Medications Current Inpatient Medications: Current Inpatient Medications Acetaminophen (Tylenol) 650 mg PO Q4H PRN PRN Reason: Headache or Minor Fever Stop: 08/30/19 14:43 Last Admin: 08/02/19 09:53 Dose: 650 mg Documented by: Al Hydrox/Mg Hydrox/Simethicone (Maalox) 30 ml PO Q4H PRN PRN Reason: GI Upset Stop: 08/30/19 14:43 Bismuth Subsalicylate (Kaopectate) 15 ml PO PRN PRN PRN Reason: Loose Stool Stop: 08/30/19 14:43 Escitalopram Oxalate (Lexapro Soln) 2.5 mg PO QAM HEIDI Stop: 09/01/19 08:59 Last Admin: 08/02/19 08:50 Dose: 2.5 mg Documented by: Lorazepam (Ativan) 0.5 mg PO BID PRN PRN Reason: Anxiety/Insomnia Stop: 08/30/19 16:36 Magnesium Hydroxide (Milk Of Magnesia) 30 ml PO DAILY PRN PRN Reason: Constipation Stop: 08/30/19 14:43 Ondansetron HCl (Zofran Odt) 8 mg PO Q8H PRN PRN Reason: Nausea Stop: 08/31/19 17:30 Last Admin: 08/02/19 08:49 Dose: 8 mg Documented by: Sodium Chloride ([place] Nasal) 1 - 2 sprays NA PRN PRN PRN Reason: Nasal Dryness/Congestion Stop: 08/30/19 14:43 Post Discharge Appointments Primary Care Physician Name Of Family Doctor[place] [place] Information Discharge Discharge Address: [address] [place] [id number] (1) Depression Depression Type: unspecified Qualified Code(s): F32.9 - Major depressive disorder, single episode, unspecified
[2019-08-03] MEDS ORDERED: ESCITALOPRAM OXALATE 10 MG TAB PO ONE (09:00)
--- NOTE | 2019-08-03 09:17 | Psychiatric Progress Note ---
Date of Service August 03, 2019 Impression / Recommendations Impression 23-year-old gentleman with minimal prior psychiatric history apart from treatment for ADHD in high school. Presents with symptoms of likely underlying generalized anxiety disorder and has a history of multiple overdose attempts in the past triggered by psychosocial stressors. We will need to explore underlying personality structure as possible contributor to suicidal risk. (1) Suicide attempt: 07/31 -Patient admitted on a voluntary status to the behavioral health unit. Will be maintained on safety checks and encouraged to participate in unit programming as appropriate -Patient has a history of 3 total impulsive suicide attempts via overdose and at risk for recurrence of self-harm if discharged without appropriate treatment -He does not appear to be demonstrating symptoms of anticholinergic toxidrome apart from complaint of dry mouth and drowsiness. He was encouraged to push oral fluids today and will defer any anticholinergic medications presently 08/01 -Reports no further suicidal impulses in last 24 hours. -Patient does have a history of multiple impulsive suicide attempts and remains at risk for recurrence of self injury if discharged prematurely 08/02 - 08/03 - Pt continues to deny SI at this time - Continue to encourage participation in group and recreational programming (2) Depression: 07/31 -Unclear if mood decompensation is truly recurrent major depressive disorder or perhaps more an adjustment disorder with depression in setting of recent psychosocial stressors. Regardless, anxiety appears to play heavily and undermining his ability to cope effectively -Patient agreeable to SSRI trial as below -advised to minimize etoh intake which may negatively impact mood and impulse control - he will require outpatient f/u which will be addressed prior to discharge 08/01 -Continue Lexapro 10 mg daily 08/02 - Dose of Lexapro reduced to 2.5mg for this morning, as patient was reporting diarrhea with episodes of emesis - It is now felt that these GI symptoms are better explained by a viral infection, and patient is agreeable with continuing titration of Lexapro. Will increase to 5mg tomorrow morning, and likely back to 10mg by time of discharge - Pt remains agreeable for outpatient therapy and psychiatric medication management - referrals pending 08/03 - Lexapro titrated to 10mg. Pt requesting to move dosing to HS, so will begin this evening. - Ongoing improvement in GI symptoms, believed to be unrelated to medication initiation - Solidify outpatient providers and appointments prior to discharge (3) Generalized anxiety disorder: 07/31 -Likely CAMI underlying. Psychoeducation provided. Risks and benefits of SSRIs reviewed in detail. Patient amenable to trial and will start Lexapro 10 mg p.o. every morning beginning tomorrow -He was advised not to continue the practice of taking Benadryl at home for sleep latency associated with anxiety. If he requires a sleep aid here in the hospital he will be given an alternative that has not directly antihistaminic/anticholinergic and will write for an Ativan 0.5 mg twice daily as needed for acute anxiety or insomnia temporarily 08/01 -Reports some interval improvement in anxiety today with support and an opportunity to have some distance from acute psychosocial stressors outside of the hospital. He was encouraged to participate actively in group and individual therapeutic activities today 08/02 - Continue as above; patient reporting ongoing improvement in anxiety 08/03 - Lexapro increasing back to 10mg - pt reporting desire to move dosing to bedtime - Continue to encourage development of healthy and effective coping strategies Inventory Assets Strengths: Patient is presently help seeking, motivated Needs: Provision of safety, medication management Risk Factors Assessment Male: Yes : Yes Do You Have Access To A Gun?: No Health Problems: No Substance Use Disorders: No Previous Attempt: Yes Previous Attempt; Didn't Tell Anyone: Yes Family History of Suicide: No Previous Psychiatric Hospitalization: No Hopelessness: No Smoker: No Protective Factors Assessment Temple Beliefs: No : No Responsible for Young Children: No 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 Chief Complaint "Feeling pretty good. Is there any reason to take the Lexapro at a specific time of day?" Review of Systems Notes Constitutional: denied Cardiovascular: denied Respiratory: denied Gastrointestinal: denied Neurological: denied Psychiatric: denies symptoms other than stated above Total of at least 10 systems reviewed, pertinent positives as above and in HPI. Sleep Information Total Hours of Sleep: 6.5 Sleep Comments: pt on q-15 minute checks Meal Information Percent Meal Consumed - Breakfast: 10 Percent Meal Consumed - Lunch: 50 Percent Meal Consumed - Dinner: 100 Nutrition Comment: pt. has poor appetite r/t GI upset Subjective Subjective Patient was seen & assessed and interval progress reviewed with nursing and social work. Staff report the patient has continued to report improvements over course of admission. He rated his mood an 8/10 and "excited" last evening. Pt was seen today to assess progress since admission. Pt states he is "feeling good", and is benefitting from unit programming. He states he particularly enjoys the "activity groups." Pt does inquire about the "right time" to take his escitalopram. We discussed consistency is the priority, which he admits may be difficult depending on the shifts he begins working for his anticipated new job. Pt was encouraged to discuss changes to dose timing with his outpatient prescriber and to work toward a consistent dosing schedule. At this time, patient feels the medication continues to contribute to mild daytime fatigue and he requests to move the medication to bedtime. He denies other medication side effects at this time. Pt is agreeable with ongoing inpatient psychiatric treatment until outpatient appointments can be solidified. He denies SI and as well as other needs or concerns at this time. Physical Exam Psychiatric Orientation: alert, oriented x 3 and cooperative (and pleasant) Apperance: appropriately dressed, appropriately groomed and appeared stated age Eye Contact: good eye contact Motor Behavior: steady gait and station and no abnormal motor movements Speech: normal rate/rhythm/volume of speech Affect: + blunted affect (appearing fatigued/subdued, but not overtly depressed) Mood: no depressed mood ("feeling good, none of that bad stuff anymore") Thought Process: goal directed thought process, clear/coherent thought process and thought association intact Thought Content: reality based without delusions; no hopelessness and no worthlessness Suicidal Thoughts: denies suicidal thoughts and denies suicidal intent Homicidal Thoughts: denies homicidal thoughts Hallucinations: no auditory hallucinations and no visual hallucinations Cognition: remote memory grossly intact, attention grossly intact and language grossly intact Insight: + fair insight Judgement: + fair judgement Vital Signs (Past 24 Hours) Last Vital Signs Temp 36.8 C 08/03/19 06:57 Pulse 110 H 08/03/19 06:57 Resp 18 08/03/19 06:57 BP 126/79 08/03/19 06:57 Pulse Ox 99 07/31/19 15:48 Results & Data ([facility]) Current Inpatient Medications Current Inpatient Medications: Current Inpatient Medications Acetaminophen (Tylenol) 650 mg PO Q4H PRN PRN Reason: Headache or Minor Fever Stop: 08/30/19 14:43 Last Admin: 08/02/19 09:53 Dose: 650 mg Documented by: Al Hydrox/Mg Hydrox/Simethicone (Maalox) 30 ml PO Q4H PRN PRN Reason: GI Upset Stop: 08/30/19 14:43 Bismuth Subsalicylate (Kaopectate) 15 ml PO PRN PRN PRN Reason: Loose Stool Stop: 08/30/19 14:43 Escitalopram Oxalate (Lexapro Tab) 10 mg PO HS HEIDI Stop: 09/02/19 21:59 Lorazepam (Ativan) 0.5 mg PO BID PRN PRN Reason: Anxiety/Insomnia Stop: 08/30/19 16:36 Magnesium Hydroxide (Milk Of Magnesia) 30 ml PO DAILY PRN PRN Reason: Constipation Stop: 08/30/19 14:43 Ondansetron HCl (Zofran Odt) 8 mg PO Q8H PRN PRN Reason: Nausea Stop: 08/31/19 17:30 Last Admin: 08/02/19 08:49 Dose: 8 mg Documented by: Sodium Chloride ([place] Nasal) 1 - 2 sprays NA PRN PRN PRN Reason: Nasal Dryness/Congestion Stop: 08/30/19 14:43 Post Discharge Appointments Primary Care Physician Name Of Family Doctor: Dr. Barker-[facility] [place] Contact Information Discharge Discharge Address: [address] [place] [address] (1) Depression Depression Type: unspecified Qualified Code(s): F32.9 - Major depressive disorder, single episode, unspecified
[2019-08-03] MEDS ORDERED: ESCITALOPRAM OXALATE 10 MG TAB PO SCH (22:00)
[2019-08-04] MEDS ORDERED: ESCITALOPRAM OXALATE 10 MG TAB PO SCH (09:00)
--- NOTE | 2019-08-04 10:14 | Discharge Summary ---
Date of Service August 04, 2019 History of Present Illness Patient reports a history of psychiatric follow-up with Dr. Rei Kumar between the ages of 13 and 17 when he was being treated for ADHD with Concerta but has been off of that medication for several years now and reports repeat testing in college did not support the ADHD diagnosis. He otherwise denies a formal psychiatric history. He does note a history of 2 prior overdose attempts previous to his overdose last evening. First overdose attempt occurred during his freshman year when he took a half bottle of ibuprofen impulsively when he felt alone "like everyone abandoned me." Second overdose attempt occurred during his sophomore year of college and also took an overdose of [id number] pain reliever but unable to recall trigger. He did not seek treatment for these events. Overdose last night with 15 to 20 tablets of Benadryl (unknown strength, likely 25 mg) around 9:30 PM in combination with 3-5 alcoholic beverages. Did not seek help. Woke this morning feeling groggy and with dry mouth but denies other symptoms of anticholinergic toxidrome. States he took the Benadryl last night either to kill himself or put himself into a coma however now feels glad that he was not successful and appreciative of opportunity to get some help. He reports that his mood at baseline is typically fairly good and he tends to perceive himself as happy but when circumstances get difficult he can feel quite depressed and it can be difficult for him to cope and he notices intrusion of suicidal impulses. Recently he reports mood has decompensated following a break-up after 5-month relationship with a female who had a 3-year-old son with whom he quickly felt himself quite attached to. They broke up last Friday and he worries that they will not be able to remain friends. 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 He reports depressed mood and increased anxiety for the past month with diminished appetite, perhaps 20 pound weight loss, variable sleep latency, variable energy. He describes a tendency to worry associated with significant physical tension, distractibility, sleep latency, and a tendency to overreact and desire to "fix" things. "I can be pretty overbearing." He rep orts a history of 1 or 2 panic attacks in his lifetime but none recent. He denies a history of social phobia, OCD, tobin, PTSD, or psychosis. He denies any other history of self injury apart from his overdose attempts. Physical Exam Psychiatric Orientation: alert, oriented x 3 and cooperative (and pleasant) Apperance: appropriately dressed, appropriately groomed and appeared stated age Eye Contact: good eye contact Motor Behavior: steady gait and station and no abnormal motor movements Speech: normal rate/rhythm/volume of speech Affect: euthymic affect and mood congruent with affect Mood: no depressed mood ("I'm feeling pretty good") Thought Process: goal directed thought process, clear/coherent thought process and thought association intact Thought Content: reality based without delusions; no hopelessness and no worthlessness Suicidal Thoughts: denies suicidal thoughts and denies suicidal intent Homicidal Thoughts: denies homicidal thoughts Hallucinations: no auditory hallucinations and no visual hallucinations Cognition: remote memory grossly intact, attention grossly intact and language grossly intact Insight: good insight Judgement: good judgement Vital Signs (Past 24 Hours) Last Vital Signs Temp 36.6 C 08/04/19 06:00 Pulse 73 08/04/19 06:46 Resp 16 08/04/19 06:00 BP 132/92 08/04/19 06:46 Pulse Ox 99 07/31/19 15:48 Principal Diagnosis - Depression NOS - Generalized Anxiety Disorder Psychiatric Data 23-year-old male admitted voluntarily for inpatient psychiatric treatment on 07/31/2019 after ingesting 15-20 tablets of diphenhydramine in combination with 3- 5 alcoholic beverages in an attempt to end his life. It was reported that suicide attempt was related to a recent break-up after a 5-month relationship with a female and concern that they may not remain friends. Additional stressors include pending transition to a new job, which has further contributed to anxiety and decompensation of mood. Pt did endorse 2 prior suicide attempts by overdose as well. Pt was previously treated for ADHD but has been off medication for several years after re-testing demonstrated no ongoing criteria for ADHD. During psychiatric evaluation, patient was found to meet criteria for depression NOS and generalized anxiety disorder. It reportedly remains unclear if symptoms are more consistent with major depressive disorder, dysthymia, or adjustment disorder. Pt was agreeable with initiation of escitalopram to target anxiety, and offer benefit for depressive symptoms as well. With initial dose, patient began reporting symptoms of vomiting and diarrhea. Dose was reduced to 2.5mg and symptoms have improved somewhat. It was found to be most likely that the patient was experiencing gastroenteritis rather than an adverse reaction to escitalopram. By the time of discharge, dose had been increased to 10mg qHS without any further concerns. Pt invited his parents to participate in a family meeting, both remaining supportive of his mental health treatment. He was agreeable with referrals for outpatient treatment and is to begin therapy and medication management through [facility]. Pt verbalized resolution of SI, improvement in mood, and better ability to utilize coping strategies to manage acute stress. Pt did request discharge home, as he was feeling a noticeable improvement in mood and reported ability to contract for safety outside of the inpatient hospital setting. Based on review of patient's case and their current presentation, risk of harm to self is no longer perceived to be acute. Management of symptoms on an outpatient basis seems the most appropriate and least restrictive setting. Pt seems appropriate for discharge with recommendation for consistent follow-up with outpatient psychiatric prescriber and therapist. Pt verbalized understanding of discharge plan reviewed and is agreeable with plan to be discharged home today. Day of Discharge Assessment Patient's case was reviewed and discussed during treatment team. Staff report the patient has continued to participate in group programming. Pt rated his mood a 9/10 last evening and "excited." Pt is requesting discharge home, as he reports perceived improvement in his presentation. Pt was seen today to assess readiness for discharge. Pt provides verbal consent to allow Alison Olivo PA-C to observe today's encounter. Pt states that he is "feeling pretty good" and is "excited to be going home." He is aware of outpatient psychiatric services arranged through [facility], and he reports motivation to continue with these appointments are recommended. Pt reports improvements in physical symptoms of nausea, vomiting, and diarrhea - stating today he has been "just a little bit nauseous." He denies any concerns related to continuing escitalopram 10mg qHS. We reviewed recommendation to discuss any changes to timing of the dose with his outpatient prescriber. Pt continues to deny SI, and is able to contract for safety outside of the inpatient hospital setting. He is able to verbalize aspects of his safety plan, and written copy was personally reviewed by this provider prior to discharge. He requests discharge home today, and verbalized understanding of discharge plans. Pt's father is to be picking him up to transport him to the pharmacy to worm picker mediations and then take him home. ROS: Constitutional: denied Cardiovascular: denied Respiratory: denied Gastrointestinal: reports ongoing nausea, denies ongoing vomiting and diarrhea Neurological: denied Psychiatric: denies symptoms other than stated above Total of at least 10 systems reviewed, pertinent positives as above and in HPI. Transition of Care Transition Of Care Record: was reviewed with the patient Advance Directives Advance Directives Information Provided: Yes Advance Directives: No Mental Health Advance Directive: No Advance Directives on File: No Living Will: No Power of Director Of Business Continuity: No Advance Directives Reason:: Declines as Mental Health Visit. Risk Factors Assessment Presenting risk factors reviewed on discharge. Precipitating stressors mitigated by: admission for inpatient psychiatric observation and treatment, initiation of medications to target presenting symptoms, attendance of therapeutic treatment groups, development of healthy and effective coping strategies, involvement of outpatient supports, completion of a safety plan, and education on diagnoses. Pt has demonstrated improvement in condition with regard to improvement in mood, resolution of SI, involvement of parents in a family meeting, and confirmed outpatient appointments to continue psychiatric treatment. At this time, patient is requesting discharge and is no longer considered to be at acute risk of harm to himself or others. Pt will be discharged with recommendation for ongoing outpatient psychiatric treatment. 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[employer]) Tobacco Cessation at Discharge Tobacco Cessation Medication Prescribed at Discharge: Not Applicable/Non-Smoker Total Time Total Time Spent: Greater Than 30 Minutes Total Time Includes: Examination of the patient, Discharge Planning, Medication Reconciliation and Communication with other providers Discharge Data Lab Results 07/31/19 07/31/19 07/31/19 10:12 10:12 10:12 WBC 10.68 RBC 5.16 Hgb 16.6 Hct 44.3 MCV 85.9 MCH 32.2 MCHC 37.5 H RDW Std Deviation 38.2 RDW Coeff of Shubham 12.3 Plt Count 302 MPV 9.3 Immature Gran % (Auto) 0.1 Neut % (Auto) 80.2 Lymph % (Auto) 13.0 Lea % (Auto) 6.0 Eos % (Auto) 0.5 Baso % (Auto) 0.2 Immature Gran # (Auto) 0.01 Neut # (Auto) 8.57 H Lymph # (Auto) 1.39 Lea # (Auto) 0.64 H Eos # (Auto) 0.05 Baso # (Auto) 0.02 Sodium 138 Potassium 3.7 Chloride 105 Carbon Dioxide 29 Anion Gap 4.0 BUN 14 Creatinine 1.21 Est Cr Clr Drug Dosing 109.4 Est GFR ( Amer) 96.5 Est GFR (Non-Af Amer) 83.3 BUN/Creatinine Ratio 11.2 Glucose 116 H Calcium 9.5 Total Bilirubin 1.3 H AST 16 ALT 21 Alkaline Phosphatase 62 Total Protein 8.1 Albumin 4.6 Globulin 3.5 Albumin/Globulin Ratio 1.3 TSH 1.270 Urine Color Urine Appearance Urine pH Ur Specific [place] Urine Protein Urine Glucose (UA) Urine Ketones Urine Blood Urine Nitrite Urine Bilirubin Urine Urobilinogen Ur Leukocyte Esterase Salicylates < 1.7 L Urine Opiates Screen Ur Methadone, Qual Acetaminophen < 2 L Urine Barbiturates Ur Phencyclidine (PCP) U Amphetamin/Meth Scrn MDMA (Ecstasy) Screen U Benzodiazepines Scrn Ur Cocaine Metabolite U Marijuana (THC) Screen Ethyl Alcohol mg/dL 07/31/19 07/31/19 07/31/19 10:12 10:53 10:53 WBC RBC Hgb Hct MCV MCH MCHC RDW Std Deviation RDW Coeff of Shubham Plt Count MPV Immature Gran % (Auto) Neut % (Auto) Lymph % (Auto) Lea % (Auto) Eos % (Auto) Baso % (Auto) Immature Gran # (Auto) Neut # (Auto) Lymph # (Auto) Lea # (Auto) Eos # (Auto) Baso # (Auto) Sodium Potassium Chloride Carbon Dioxide Anion Gap BUN Creatinine Est Cr Clr Drug Dosing Est GFR ( Amer) Est GFR (Non-Af Amer) BUN/Creatinine Ratio Glucose Calcium Total Bilirubin AST ALT Alkaline Phosphatase Total Protein Albumin Globulin Albumin/Globulin Ratio TSH Urine Color Yellow Urine Appearance Clear Urine pH 6.0 Ur Specific [place] 1.009 Urine Protein Negative Urine Glucose (UA) Negative Urine Ketones Negative Urine Blood Negative Urine Nitrite Negative Urine Bilirubin Negative Urine Urobilinogen Negative Ur Leukocyte Esterase Negative Salicylates Urine Opiates Screen Neg Ur Methadone, Qual Neg Acetaminophen Urine Barbiturates Neg Ur Phencyclidine (PCP) Neg U Amphetamin/Meth Scrn Neg MDMA (Ecstasy) Screen Neg U Benzodiazepines Scrn Neg Ur Cocaine Metabolite Neg U Marijuana (THC) Screen Neg Ethyl Alcohol mg/dL < 3.0 Hospital Course (1) Suicide attempt: 07/31 -Patient admitted on a voluntary status to the behavioral health unit. Will be maintained on safety checks and encouraged to participate in unit programming as appropriate -Patient has a history of 3 total impulsive suicide attempts via overdose and at risk for recurrence of self-harm if discharged without appropriate treatment -He does not appear to be demonstrating symptoms of anticholinergic toxidrome apart from complaint of dry mouth and drowsiness. He was encouraged to push oral fluids today and will defer any anticholinergic medications presently 08/01 -Reports no further suicidal impulses in last 24 hours. -Patient does have a history of multiple impulsive suicide attempts and remains at risk for recurrence of self injury if discharged prematurely 08/02 - 08/03 - Pt continues to deny SI at this time - Continue to encourage participation in group and recreational programming (2) Depression: 07/31 -Unclear if mood decompensation is truly recurrent major depressive disorder or perhaps more an adjustment disorder with depression in setting of recent psychosocial stressors. Regardless, anxiety appears to play heavily and undermining his ability to cope effectively -Patient agreeable to SSRI trial as below -advised to minimize etoh intake which may negatively impact mood and impulse control - he will require outpatient f/u which will be addressed prior to discharge 08/01 -Continue Lexapro 10 mg daily 08/02 - Dose of Lexapro reduced to 2.5mg for this morning, as patient was reporting diarrhea with episodes of emesis - It is now felt that these GI symptoms are better explained by a viral infection, and patient is agreeable with continuing titration of Lexapro. Will increase to 5mg tomorrow morning, and likely back to 10mg by time of discharge - Pt remains agreeable for outpatient therapy and psychiatric medication management - referrals pending 08/03 - Lexapro titrated to 10mg. Pt requesting to move dosing to HS, so will begin this evening. - Ongoing improvement in GI symptoms, believed to be unrelated to medication initiation - Solidify outpatient providers and appointments prior to discharge (3) Generalized anxiety disorder: 07/31 -Likely CAMI underlying. Psychoeducation provided. Risks and benefits of SSRIs reviewed in detail. Patient amenable to trial and will start Lexapro 10 mg p.o. every morning beginning tomorrow -He was advised not to continue the practice of taking Benadryl at home for sleep latency associated with anxiety. If he requires a sleep aid here in the hospital he will be given an alternative that has not directly antihistaminic/anticholinergic and will write for an Ativan 0.5 mg twice daily as needed for acute anxiety or insomnia temporarily 08/01 -Reports some interval improvement in anxiety today with support and an opportunity to have some distance from acute psychosocial stressors outside of the hospital. He was encouraged to participate actively in group and individual therapeutic activities today 08/02 - Continue as above; patient reporting ongoing improvement in anxiety 08/03 - Lexapro increasing back to 10mg - pt reporting desire to move dosing to bedtime - Continue to encourage development of healthy and effective coping strategies Mental Health & Subst Abuse Tx Psychiatrist Name of Psychiatrist: Joshua Psychiatrist's Time of Appointment with Psychiatrist: You will be assigned an apt with Dr Kelly at intake appointment Psychiatric Appointment Comment: [address] [facility] [place] [id number] Psychiatrist Release of Information: Obtained, Reviewed and Signed Therapist Name of Therapist: Joshua Maier LPC Therapist's ext [phone] Date of Therapist Appointment: 08/19/19 Time of Therapist Appointment: 2:30pm Therapy Appointment Comment: [id number] [facility] [place] [id number] Therapist Release of Information: Obtained, Reviewed and Signed Post Discharge Appointments Primary Care Physician Name Of Family Doctor: DAVID - Dr. Lerma Primary Care Time of Appointment with PCP: Follow up as needed [id number] [id number] [facility] Release of Information: Obtained, Reviewed and Signed Smoking Cessation Counseling Tobacco Cessation Medication Prescribed at Discharge: Not Applicable/Non-Smoker Contact Information Discharge Discharge Address: [address] [place] [address], [place] [id number] Discharge Plan Discharge Items Patient Disposition: Home - Self-Care Reason For Visit: DEPRESSION NOS Discharge Diagnosis: - Depression - Generalized anxiety disorder Condition on Discharge: Good Activity: Resume your previous activity Non-emergency contact: Primary Care Provider, Psychiatrist and Therapist Call non-emergency contact if: you have any medication questions and your symptoms worsen Follow-up/Referrals: Kofi Lerma MD [Primary Care Provider] - Diet: Regular Addtl Attending Provider Instructions: SPECIAL CARE INSTRUCTIONS: 1. Follow through with your scheduled aftercare appointments. If unable to keep an appointment, please call to reschedule. 2. Take your medication only as prescribed. Medication should not be changed or stopped without the approval of your doctor. In the event of worsening symptoms or concerns about side effects, contact your doctor immediately. 3. Utilize new healthy coping skills, anger management skills, and stress management skills learned during your hospitalization. Journal feelings and process them with a support person. Identify stressors or situations that may result in relapse, deterioration or inappropriate behaviors and develop a plan to deal with those issues. 4. If your coping skills are ineffective and you are in crisis, contact your outpatient providers for direction. If unable to reach your providers, please call the CAN HELP LINE AT or go to the closest Emergency Room. 5. Avoid alcohol and un-prescribed drugs. 6. You have been provided with the Mental Health Advance Directives Pamphlet for your review. AFTERCARE APPOINTMENTS: * Please call your insurance company prior to your scheduled appointment to confirm your aftercare providers are covered. Take your insurance information to your appointments. WHO TO CALL AND WHEN: Medical Emergencies: For questions or emergencies related to your hospital stay, please contact the Inpatient Behavioral Health Unit at [phone]. A tax representative is on-call 13/01 for the Behavioral Health Unit for emergencies At any time you feel your situation is an emergency, you may also call 911 immediately. Your Discharge Instructions noted above were prepared by provider Ann Wilkinson PA-C. Pending Studies at Discharge: No Stand-Alone Forms: My [employer], Smoking Cessation, Suicide Prevention Resources Medications and DC Order Prescriptions: New escitalopram oxalate 10 mg Tablet 10 mg PO HS 30 Days Qty: 30 RF: 0 No Action No Known Home Medications RF: 0 Discharge Orders: Discharge Order (Routine); Ordered 08/04/19 Ordered By: Ann Wilkinson Admission Data Admit Date/Time: 07/31/19 14:02 Attending Provider: Preet Mendez Admit Provider: Preet Mendez Primary Care Provider: Kofi Lerma Other Interventions: Discharge Summary Assessment (RN) Last Done: 08/04/19 10:33 PSY Interdisciplinary Discharge Planning Last Done: 08/04/19 10:34 DC Date/Time DO NOT enter until pt leaves facility: 08/04/19 11:04 Coding Level of Care Code 28073 D/C day mgmt > 30 min Diagnoses Suicide attempt T14.91XA Depression F32.9 Depression Type: unspecified Generalized anxiety disorder F41.1
== END 2019-08-04 11:04 | disposition home or self-care (01) | DRG 881 ==
LOC: ED 09:34 → 3S 14:02